=== PATIENT | male | born 1970 | race Caucasian/White ===

== ENCOUNTER 2025-10-04 08:52 | Outpatient (REF) | payer BC, SELFPAY ==
[2025-10-04 10:42] LABS: Hematocrit 49.0 % (42.0-52.0); Hemoglobin 16.2 g/dl (14.0-18.0); Mean Corpuscular HGB Conc 33.1 g/dl (31.0-36.0); Mean Corpuscular Hemoglobin 30.8 pg (27.0-33.0); Mean Corpuscular Volume 93.2 fL (80.0-98.0); NRBC Abs Auto 0.000 X10*3/uL (0.0-0.012); NRBC Pct Auto 0.0 /100WBC (0.0-0.2); Platelet Count 278 X10*3/uL (160-400); Red Blood Count 5.26 X10*6/uL (4.60-5.80); White Blood Count 13.1 X10*3/uL (4.8-10.8)
[2025-10-04 11:21] LABS: Prostate Specific Antigen 3.49 ng/mL (<0.05-4.0)
[2025-10-04 11:23] LABS: Appearance Urine Clear; Glucose Urine UA Negative (Negative); PH 6.5 (5.0-9.0); Specific Gravity - Urine 1.015 (1.005-1.025); UMIC TRIGGER UA YES
[2025-10-04 11:24] LABS: HIV Num 1 0.07 S/CO (0.00-0.99); ~HepC Num1 0.09 S/CO (0.00-0.79); ~Hepatitis C Antibody Nonreactive (Nonreactive)
[2025-10-04 11:35] LABS: Alanine Aminotransferase 31 U/L (0-40); Albumin Level 4.7 g/dL (3.5-5.0); Alkaline Phosphatase 86 U/L (39-117); Anion Gap 11 (12-20); Aspartate Amino Transferase 27 U/L (5-37); Blood Urea Nitrogen 10 mg/dL (9-16); Calcium 9.1 mg/dL (8.4-10.2); Carbon Dioxide 28 mmol/L (22-29); Chloride 107 mmol/L (96-108); Cholesterol 218 mg/dL (<200); Estimated Glomerular Filt Rate > 60; HDL Cholesterol 62 mg/dL (>40); Potassium 4.5 mmol/L (3.3-5.1); Sodium 141 mmol/L (135-145); Total Protein 7.6 g/dL (6.5-8.0); Triglycerides 86 mg/dL (<150)
== END 2025-10-04 08:53 | disposition home or self-care (01) ==
LOC: HO.LAB 08:52
PROVIDERS: PCP Internal Medicine; Visit Provider Internal Medicine
DX: Z00.00 Encounter for general adult medical examination without abnormal findings (principal); R06.83 Snoring; Z13.1 Encounter for screening for diabetes mellitus; L72.9 Follicular cyst of the skin and subcutaneous tissue, unspecified; L82.1 Other seborrheic keratosis; M72.0 Palmar fascial fibromatosis [Dupuytren]; Z12.5 Encounter for screening for malignant neoplasm of prostate; Z13.6 Encounter for screening for cardiovascular disorders; Z13.31 Encounter for screening for depression; Z13.39 Encounter for screening examination for other mental health and behavioral disorders
CPT/HCPCS: 36415; 80053; 80061; 81001; 81003; 83036; 84153; 84443; 85027; 86803; 87389; 96127

== ENCOUNTER 2025-10-04 08:52 | Outpatient (AMB) | payer BC, SELFPAY ==
[2025-10-04 08:55] VITALS: BP 130/78; PULSE 89; RESP 18; O2SAT 99; BMI 25.8
--- NOTE | 2025-10-04 08:55 | MHC.PC.OV ---
Vital Signs 10/04/25 08:55 Height 5 ft 10 in Weight 179 lb 8 oz BMI 25.8 BP 130/78 Blood Pressure Location Lt brachial Position Sitting Respiration 18 Pulse 89 Pulse Source Pulse Oximeter Temp Source Temporal Artery Scan Pulse Oximetry (%) 99 Oxygen Delivery Method Room Air Intake Visit Reasons: [employer]PLICATION [employer]ELOPER-[employer] Yard Required: No Accompanied by: Self / Same As Patient Allergies No Known Allergies Allergy (Verified 10/04/25 08:59) Medication List - Last Reconciled 10/04/25 by Gil Bautista MD No Known Home Meds Tobacco use date assessed: 10/04/25 Dental Screening Dental Screen Date: 10/04/25 Did you have a dental visit in the last 12 months?: No Did you have a dental problem in the last 6 months where you did not have access to dental care?: No Was dental information given to patient?: No HPI HPI Comments History of Present Illness Details The patient is a 55 year old M presenting to [facility] care and for evaluation of multiple medical concerns. The patient suspects sleep apnea due to the patient's 's reports of snoring and has noticed waking up with breathing pauses. The patient also experiences occasional daytime fatigue and notes left-sided sinus congestion, particularly with colds, and has a maternal history of nasal polyps. The patient reports a long-standing, painless cyst in the left upper abdomen that has remained stable in size, though it can fluctuate slightly. There are no associated symptoms such as fever, chills, or constipation. There are multiple stuck on skin lesions of concern, including one on the chest that has grown, one on the back that has changed color, and another smaller one on the back. The patient was previously diagnosed with Dupuytren's contracture, which has significantly worsened over the last year, causing the fingers on both hands to contract and impacting quality of life activities. Past medical history is notable for a left-sided hernia repair and wisdom teeth removal. The patient takes no medications, has no known allergies, denies alcohol or illicit drug use, and smokes cigarettes. There is no family history of colon cancer or early-onset heart disease. [facility] Surgical History History of hernia surgery Savery teeth removed Social History Alcohol intake: never Patient Tobacco Use Status: Current everyday Tobacco user Tobacco use type: Cigarette e-Cigarette/Vaping Use: Never Used Current occupational status: employed Current occupation: Sensor Technician Cognitive needs: No Hearing needs: No Vision needs: No Questionnaire PHQ-9 Over the last 2 weeks, how often have you been bothered by any of the following problems? 1. Little interest or pleasure in doing things: not at all 2. Feeling down, depressed, or hopeless: not at all 3. Trouble falling or staying asleep, or sleeping too much: several days 4. Feeling tired or having little energy: several days 5. Poor appetite or overeating: not at all 6. Feeling bad about yourself - or that you are a failure or have let yourself or your family down: not at all 7. Trouble concentrating on things, such as reading the newspaper or watching television: not at all 8. Moving or speaking so slowly that other people could have noticed. Or the opposite - being so fidgety or restless that you have been moving around a lot more than usual: not at all 9. Thoughts that you would be better off or of hurting yourself in some way: not at all Total score: 2 Source: Developed by Drs. Robert Navarro, Chanel De Luna, Antonio Charles and colleagues, with an educational guero from [employer]. Thrive Questionnaire Date Thrive assessed: 10/04/25 I am a: Patient What is your living situation today?: I have a steady place to live Within the past 12 months, did the food you bought not last and you didn't have the money to get more?: Never true Within the past 12 months, did you worry whether your food would run out before you got money to buy more?: Never true Do you have trouble paying for medicines?: No Do you have trouble getting transportation to medical appointments?: No Do you have trouble paying your heating and electricity bill?: No Do you have trouble taking care of your child, family member or friend?: No Do you have trouble with day-to-day activities such as bathing, preparing meals, shopping, managing finances, etc.?: No Are you currently unemployed and looking for a job?: No Are you interested in more education?: No Please select the resources that you would like help with: None Currently or been in a relationship where the following occur: No concerns reported THRIVE Score: 0 AUDIT C Alcohol Use Questionnaire (AUDIT-C) 1. How often do you have a drink containing alcohol?: Never Total Score: 0 LOUISA-7 AMB Questionnaire LOUISA-7 Date LOUISA - 7 assessed: 10/04/25 Feeling nervous, anxious, or on edge: 0 = Not at all Not being able to stop or control worryin = Not at all Worrying too much about different things: 0 = Not at all Trouble relaxin = Several days Being so restless that it is hard to sit still: 1 = Several days Becoming easily annoyed or irritable: 1 = Several days Feeling afraid as if something awful might happen: 0 = Not at all Total LOUISA-7 score (0-4 normal; 5-9 mild; 10-14 moderate; 15-21 severe): 3 Source: Developed by Drs. Robert Navarro, Chanel De Luna, Antonio Charles and colleagues, with an educational guero from [employer]. Review of Systems Const Details: As per HPI. Physical exam (Primary Care) Vital Signs: Last Vital Signs Pulse 89 10/04/25 08:55 Resp 18 10/04/25 08:55 BP 130/78 10/04/25 08:55 Pulse Ox 99 10/04/25 08:55 Oxygen Delivery Method Room Air 10/04/25 08:55 BMI result Body Mass Index 25.8 Tobacco/Smoking Status: Tobacco use Status Tobacco use date assessed 10/04/25 10/04/25 09:03 Patient Tobacco Use Status Current everyday Tobacco 10/04/25 09:03 Tobacco use type Cigarette 10/04/25 09:03 e-Cigarette/Vaping Use Never Used 10/04/25 09:03 PHQ-9: PHQ-9 Score PHQ-9: Total score 2 10/04/25 09:03 Thrive Assessment: Date of Thrive Assessment Date Thrive assessed 10/04/25 10/04/25 09:03 Currently or been in a relationship where the following occur: No concerns reported Const Other: Pertinent findings are in BOLD GENERAL APPEARANCE NAD, activity normal for age, well developed/ well nourished, no cyanosis, pallor, or diaphoresis. EYES lids/conjunctiva normal. EARS/NOSE/THROAT Mucous membranes moist, nares normal, lips/teeth normal uvula midline without oral pharyngeal erythema, exudate or swelling TMs normal bilaterally. No lymphangitis/lymphedema. HEAD/NECK normocephalic atraumatic, no facial trauma, neck is supple. RESPIRATORY respiratory effort normal, speaks in full sentences, no tripod position, no accessory muscle use. Lungs clear to auscultation without rhonchi, wheezes, rales CARDIAC Regular rate and rhythm, no edema. ABDOMINAL Soft, ND/NT. No evidence of fluid wave. No pulsatile masses on exam, rebound tenderness, Brink sign or pain over Mcburney's point. MUSCLES/EXTREMITIES No abnormal range of motion, no swelling. Bilateral hand contracture. SKIN Warm, pink and dry. No rashes, dermatoses, petechiae or lesions. Stuck on skin lesion on right forehead, and on the patient back (similar to seborrheic Keratosis). Large fluctuant cyst in left upper abdomen. NEUROLOGICAL Speech is clear and appropriate. Normal level of consciousness. Gait and coordination are normal. 5/5 strength in all extremities. PSYCH Normal mood and affect. Judgement/competence is appropriate Coding Level of Care Code New Pt Level 4 (44796) Diagnoses Snoring R06.83 Cyst of skin L72.9 Seborrheic keratosis L82.1 Dupuytren contracture M72.0 Time Spent (min) 45 Assessment & Plan Assessment & Plan (1) Snoring: Code(s): R06.83 - Snoring Category: Medical Plan: - A referral will be placed to Sleep Medicine for a formal sleep study. - Prescribed Flonase nasal spray to be used twice daily to address potential sinus congestion contributing to symptoms. (2) Cyst of skin: Code(s): L72.9 - Follicular cyst of the skin and subcutaneous tissue, unspecified Category: Medical Plan: - An ultrasound of the abdominal cyst will be ordered to further evaluate the lesion. - A referral will be placed to General Surgery for evaluation and to discuss management options. (3) Seborrheic keratosis: Code(s): L82.1 - Other seborrheic keratosis Category: Medical Plan: - A referral will be made to Dermatology for evaluation of multiple skin lesions. (4) Dupuytren contracture: Code(s): M72.0 - Palmar fascial fibromatosis [Dupuytren] Category: Medical Plan: - A referral will be made to a hand surgeon for evaluation and management of worsening bilateral contractures. Plan I have discussed with the patient that this is a first visit to establish care. We addressed the patient's concern about sleep apnea, for which I have placed a referral for a sleep study and recommended Flonase to address potential nasal congestion. Regarding the abdominal mass, I explained that it is likely a benign cyst but that an ultrasound and a consultation with general surgery are warranted for definitive diagnosis and to discuss management. For the skin lesions, particularly the ones that have changed in size or color, I have referred the patient to dermatology due to the risk of malignancy. We also discussed the worsening bilateral Dupuytren's contractures, and I have referred the patient to a hand surgeon. We discussed health maintenance, including ordering baseline lab work. I also counseled the patient on smoking cessation, offering support and resources for when the patient is ready to quit. We will follow up in two months to review the results of the workup and specialist consultations. Orders: Orders Comprehensive Met. Panel Today Z00.00 - Encounter for general adult medical examination without abnormal findings Hemoglobin A1c Today Z00.00 - Encounter for general adult medical examination without abnormal findings HIV Ab/Ag Today Z00.00 - Encounter for general adult medical examination without abnormal findings TSH reflex Free T4 Today Z00.00 - Encounter for general adult medical examination without abnormal findings US soft tissue chest Today L72.9 - Follicular cyst of the skin and subcutaneous tissue, unspecified Complete Blood Count no Diff Today Z00.00 - Encounter for general adult medical examination without abnormal findings Hepatitis C Antibody Reflex Today Z00.00 - Encounter for general adult medical examination without abnormal findings Lipid Panel Today Z00.00 - Encounter for general adult medical examination without abnormal findings Prostate Specific Antigen Today Z00.00 - Encounter for general adult medical examination without abnormal findings UA and rflx microscopic Today Z00.00 - Encounter for general adult medical examination without abnormal findings Referrals General Surgery Referral L72.9 - Follicular cyst of the skin and subcutaneous tissue, unspecified Dermatology Referral L82.1 - Other seborrheic keratosis, M72.0 - Palmar fascial fibromatosis [Dupuytren] Hand Surgery Referral M72.0 - Palmar fascial fibromatosis [Dupuytren] Sleep Medicine Referral R06.83 - Snoring Medications: New fluticasone propionate 50 mcg/actuation (Flonase Allergy Relief) administer into each nostril 1 spray intranasal BID 16 grams 2RF
== END 2025-10-04 09:31 | disposition home or self-care (01) ==
LOC: HO.HMCH 08:52
PROVIDERS: PCP Internal Medicine; Visit Provider Internal Medicine
DX: R06.83 Snoring (principal); L72.9 Follicular cyst of the skin and subcutaneous tissue, unspecified; L82.1 Other seborrheic keratosis; M72.0 Palmar fascial fibromatosis [Dupuytren]